=== PATIENT | female | born 1995 | race Caucasian/White ===

== ENCOUNTER 2016-09-30 15:14 | Emergency (ER) | payer OTHER ==
[~2016-09-30] VITALS: Ht 152.4 cm; Wt 87.1 kg
[2016-09-30] MEDS ORDERED: NAPROXEN500 MG PO (17:11)
[2016-09-30] MEDS ORDERED: FLEXERIL10 MG PO (17:11)
[2016-09-30 17:28] VITALS: BP 132/84
== END 2016-09-30 17:29 | disposition home or self-care (01) ==
LOC: EME 15:14
DX: S30.810A Abrasion of lower back and pelvis, initial encounter (principal); M54.5 Low back pain; S50.312A Abrasion of left elbow, initial encounter; Y04.8XXA Assault by other bodily force, initial encounter; Y07.9 Unspecified perpetrator of maltreatment and neglect; Z88.1 Allergy status to other antibiotic agents; F17.200 Nicotine dependence, unspecified, uncomplicated
CPT/HCPCS: 72070; 72100; 99281; 99284